=== PATIENT | male | born 1995 | race American Indian/Alaskan Native ===

== ENCOUNTER 2017-08-30 22:47 | Emergency (ER) | payer OTHER ==
[2017-08-30 23:18] LABS: Hematocrit 41.4 % (35.5-45.6); Hemoglobin 14.4 gm/dl (11.8-15.2); Mean Corpuscular HGB Conc 35 % (32-34); Mean Corpuscular Hemoglobin 33 pg (28-32); Mean Corpuscular Volume 94 fl (84-94); Red Blood Count 4.43 M/mm3 (3.65-5.03)
[2017-08-30 23:19] LABS: Basophils # (Auto) 0.1 K/mm3 (0.0-0.1); Basophils % (Auto) 1.3 % (0.0-1.8); Eosinophils % (Auto) 0.5 % (0.0-4.3); Lymphocytes # (Auto) 1.4 K/mm3 (1.2-5.4); Lymphocytes % (Auto) 14.6 % (13.4-35.0); Monocytes # (Auto) 1.2 K/mm3 (0.0-0.8); Monocytes % (Auto) 12.6 % (0.0-7.3); Platelet Count 228 K/mm3 (140-440)
[2017-08-30 23:27] LABS: BUN/Creatinine Ratio 21; Blood Urea Nitrogen 19 mg/dL (9-20); Calcium 9.5 mg/dL (8.4-10.2); Hemolysis Index 6
--- NOTE | 2017-08-31 00:27 | Emergency Department Report ---
ED Psych HPI - General Chief Complaint: Psych Stated Complaint: NON COMPLIANT WITH MEDS Time Seen by Provider: 08/31/17 00:08 Source: patient, EMS Mode of arrival: Ambulatory - History of Present Illness Initial Comments: Mr. hanna is a 22-year-old male with history of schizophrenia. Family called EMS services because he is noncompliant with psychiatric medications. He was [place] [address] He denies mental illness. He states that he is not taking any medications. He states that he is homeless. He has mild nasal congestion without any other complaints. Denies suicidal or homicidal ideation. -: Gradual, week(s) (2) History of same: Yes Context: not taking psychiatric Associated Symptoms: other (nasal congestion) - Related Data Home Medications Medication Instructions Recorded Confirmed Last Taken Unobtainable 08/31/17 08/31/17 Unknown Allergies Allergy/AdvReac Type Severity Reaction Status Date / Time No Known Allergies Allergy Verified 08/30/17 22:59 ED Review of Systems ROS: Stated complaint: NON COMPLIANT WITH MEDS Other details as noted in HPI Comment: All other systems reviewed and negative Constitutional: denies: fever, malaise Respiratory: denies: cough ED Past Medical Hx - Past Medical History Previous Medical History?: Yes Hx Psychiatric Treatment: Yes (schizo) - Surgical History Past Surgical History?: No - Social History Smoking Status: Never Smoker Substance Use Type: None - Medications Home Medications: Home Medications Medication Instructions Recorded Confirmed Last Taken Type Unobtainable 08/31/17 08/31/17 Unknown History ED Physical Exam - General Limitations: No Limitations General appearance: alert, in no apparent distress - Head Head exam: Present: atraumatic, normocephalic - Eye Eye exam: Present: normal appearance - ENT ENT exam: Present: mucous membranes moist - Neck Neck exam: Present: normal inspection - Respiratory Respiratory exam: Present: normal lung sounds bilaterally. Absent: respiratory distress, wheezes, rales, rhonchi - Cardiovascular Cardiovascular Exam: Present: regular rate, normal rhythm. Absent: systolic murmur, diastolic murmur, rubs, gallop - GI/Abdominal GI/Abdominal exam: Present: soft, normal bowel sounds. Absent: distended, tenderness, guarding, rebound - Rectal Rectal exam: Present: deferred - Extremities Exam Extremities exam: Present: normal inspection - Back Exam Back exam: Present: normal inspection - Neurological Exam Neurological exam: Present: alert, oriented X3 - Psychiatric Psychiatric exam: Present: normal affect, flat affect. Absent: depressed, agitated, anxious, manic, homicidal ideation, suicidal ideation - Skin Skin exam: Present: warm, dry, intact, normal color. Absent: rash ED Course Vital Signs 08/30/17 08/30/17 22:50 22:55 Temperature 99.3 F 99.3 F Pulse Rate 115 H 99 H Respiratory 18 18 Rate Blood Pressure 126/80 126/80 O2 Sat by Pulse 95 96 Oximetry ED Medical Decision Making - Lab Data Result diagrams: 08/30/17 23:02 08/30/17 23:02 - Medical Decision Making Mr. Hanna has a history of schizophrenia. According to family report to EMS he has been noncompliant with medications. He does present an imminent harm to himself with poor insight and judgment. I have signed 1013 form. Staff has instituted necessary precautions. He is medically clear for psychiatric care. Awaiting mental health assessment. Anticipate transfer to psychiatric inpatient facility. Laboratory Results - last 24 hr 08/30/17 08/30/17 08/30/17 23:02 23:02 23:02 WBC RBC Hgb Hct MCV MCH MCHC RDW Plt Count Lymph % (Auto) [place] % (Auto) Eos % (Auto) Baso % (Auto) Lymph # Hopkins # Eos # Baso # Add Manual Diff Seg Neutrophils % Seg Neutrophils # Sodium 139 Potassium 3.7 Chloride 97.2 L Carbon Dioxide 28 Anion Gap 18 BUN 19 Creatinine 0.9 Estimated GFR > 60 BUN/Creatinine Ratio 21 Glucose 105 H Calcium 9.5 Salicylates < 0.3 L Acetaminophen < 5.0 L Plasma/Serum Alcohol 08/30/17 08/30/17 23:02 23:02 WBC 9.5 RBC 4.43 Hgb 14.4 Hct 41.4 MCV 94 MCH 33 H MCHC 35 H RDW 12.0 L Plt Count 228 Lymph % (Auto) 14.6 Hopkins % (Auto) 12.6 H Eos % (Auto) 0.5 Baso % (Auto) 1.3 Lymph # 1.4 Hopkins # 1.2 H Eos # 0.0 Baso # 0.1 Add Manual Diff Complete Seg Neutrophils % 71.0 H Seg Neutrophils # 6.7 Sodium Potassium Chloride Carbon Dioxide Anion Gap BUN Creatinine Estimated GFR BUN/Creatinine Ratio Glucose Calcium Salicylates Acetaminophen Plasma/Serum Alcohol < 0.01 clear for psychiatric care. Awaiting transfer to psychiatric facility. Critical care attestation.: If time is entered above; I have spent that time in minutes in the direct care of this critically ill patient, excluding procedure time. ED Disposition Clinical Impression: Schizophrenia Disposition: [id number]/TX-[id number] ANOTHER TYPE HLTHCARE Is pt being admited?: No Does the pt Need Aspirin: No Condition: Stable
[2017-08-31 01:00] LABS: Bilirubin,Urine NEG (Negative); Blood,Urine MOD (Negative); Color,Urine Yellow (Yellow); Mucus,Urine 3+ /HPF
[2017-08-31 01:07] LABS: Amphetamine Screen,Urine PRESUMPTIVE NEGATIVE; Benzodiazepines Screen,Urine PRESUMPTIVE NEGATIVE; Cannabinoid Screen,Urine PRESUMPTIVE NEGATIVE; Cocaine Screen,Urine PRESUMPTIVE NEGATIVE; Methadone Screen,Urine PRESUMPTIVE NEGATIVE; Opiate Screen,Urine PRESUMPTIVE NEGATIVE
--- NOTE | 2017-08-31 13:33 | Consultation ---
History of Present Illness - Reason for Consult Consult date: 08/31/17 Reason for consult: Mental Health Evaluation Requesting physician: JAMMIE MOORE - Chief Complaint Chief complaint: "I don't know why I am here" - History of Present Psychiatric Illness 22 y.o. AA male presenting to the ER [place]. Today the patient is calm and cooperative, but disorganized during the assessment. He could not logically explain his action prior to his admission to the ER. He did state that his mother brought him to the ER because something was going on with him. He stated taking Risperdal in the past, but did not like the way the medication made him feel. He was looking around during the interview , possibly responding to some type of stimuli. He could not confirm or deny erratic sleep. He denies a poor appetite. He denies SI/HI's and AVH's. He denies recreational drug use and alcohol consumption (etoh). Medications and Allergies Allergies Allergy/AdvReac Type Severity Reaction Status Date / Time No Known Allergies Allergy Verified 08/30/17 22:59 Home Medications Medication Instructions Recorded Confirmed Last Taken Type Unobtainable 08/31/17 08/31/17 Unknown History Past psychiatric history - Past Medical History Past Medical History: No medical history Past Surgical History: No surgical history - past Psychiatric treatment and history psychiatric treatment history: He stated seeing a psychiatrist in the past. He denies a fam psy hx. - Social History Social history: other (Possibly homeless or resides with his mother) Mental Status Exam - Vital signs Last Vital Signs Temp 97.6 F 08/31/17 09:48 Pulse 87 08/31/17 09:48 Resp 16 08/31/17 09:53 BP 128/69 08/31/17 09:48 Pulse Ox 98 08/31/17 09:53 - Exam Narrative exam: MSE: Appearance: calm, cooperative Behavior: regular eye contact Speech: regular rate and tone Mood: "okay" Affect: congruent to mood Thought Process: disorganized Thought Content: denies SI/HI's and AVH's Motor Activity: lying in bed Cognition: A/O x 3 Insight: variable Judgment: variable Results Result Diagrams: 08/30/17 23:02 08/30/17 23:02 Abnormal lab results 08/30/17 08/30/17 08/30/17 Range/Units 23:02 23:02 23:02 MCH (28-32) pg MCHC (32-34) % RDW (13.2-15.2) % [place] % (Auto) (0.0-7.3) % [place] # (0.0-0.8) K/mm3 Seg Neutrophils % (40.0-70.0) % Chloride 97.2 L (98-107) mmol/L Glucose 105 H (75-100) mg/dL Ur Specific [place] (1.003-1.030) Salicylates < 0.3 L (2.8-20.0) mg/dL Acetaminophen < 5.0 L (10.0-30.0) ug/mL 08/30/17 08/31/17 Range/Units 23:02 00:44 MCH 33 H (28-32) pg MCHC 35 H (32-34) % RDW 12.0 L (13.2-15.2) % [place] % (Auto) 12.6 H (0.0-7.3) % [place] # 1.2 H (0.0-0.8) K/mm3 Seg Neutrophils % 71.0 H (40.0-70.0) % Chloride (98-107) mmol/L Glucose (75-100) mg/dL Ur Specific [place] 1.031 H (1.003-1.030) Salicylates (2.8-20.0) mg/dL Acetaminophen (10.0-30.0) ug/mL All other labs normal. Assessment and Plan Assessment and plan: Impression: Unspecified Psychosis. Today the patient is calm and cooperative, but disorganized during the assessment. UDS negative. DDx: R/O Bipolar DO, R/O Schizophrenia Recommendation/Plan: Continue 1013 and gather collateral information to help determine proper treatment and dispo.
--- NOTE | 2017-09-01 13:42 | Progress Note ---
Subjective - Reason for Consult Consult date: 09/01/17 Reason for consult: Psychiatry Follow-up - Chief Complaint Chief complaint: "Hello there" 22 y.o. AA male presenting [place] the ER [place]. Today the patient is calm and cooperative, but still disorganized during the assessment. He could not explain his actions prior to his admission. His answers to questions were not logical. Per collateral information from his mother Paulina Clark at [phone], she stated that her son's behavior has been bizarre. She stated that he was missing for 2 days prior to his arrival to the ER. She stated that her son's mood has changed "drastically." The patient stated that he didn't want to sleep prior to him wandering. He denies SI/HI's and AVH's. Mental Status Exam - Vital signs Last Vital Signs Temp 98.1 F 09/01/17 10:00 Pulse 85 09/01/17 10:00 Resp 14 09/01/17 10:00 BP 118/65 09/01/17 10:00 Pulse Ox 98 09/01/17 10:00 - Exam Narrative exam: MSE: Appearance: calm, cooperative, malodorous Behavior: regular eye contact Speech: regular rate and tone Mood: labile Affect: congruent to mood Thought Process: disorganized Thought Content: denies SI/HI's and AVH's Motor Activity: lying in bed Cognition: A/O x 3 Insight: poor Judgment: variable Assessment and Plan Impression: Unspecified Psychosis. Today the patient is calm and cooperative, but still disorganized during the assessment. UDS negative. DDx: Bipolar DO with psychosis, R/O Schizophrenia Recommendation/Plan: Continue 1013 with placement to inpatient psy services. Start Abilify 5 mg PO daily for mood/psychosis and Depakote 1000 mg PO as a loading dose and modify the dose to 500 mg PO BID. Discussed possible metabolic side effects of Abilify with the patient. Prior to patient being transferred, contact his mother Paulina Clark at [phone]. The patient's mother would like for her son to transferred to [facility] if possible.
[2017-09-01 15:03] LABS: Alanine Aminotransferase 20 units/L (7-56); Lipase 21 units/L (13-60)
[2017-09-01] MEDS: ABILIFY PO SCH (15:45)
[2017-09-02] MEDS: ABILIFY PO SCH (09:00)
--- NOTE | 2017-09-02 16:12 | Progress Note ---
Subjective - Reason for Consult Reason for consult: follow up - Chief Complaint Chief complaint: Subjectively: Patient appears somewhat somnolent and withdrawn. Patient minimally cooperative with interview. Mostly selectively mute. Mental status examination: In hospital gown, limited cooperation, limited eye contact, malodorous and disheveled, guarded, anxious, constricted, slow soft mostly mute, impoverished concrete, somatically focused, likely responding to internal stimuli, insight judgment limited ADLs limited Plan: Refer for inpatient psychiatric care Continue Depakote at current dose and monitor labs when appropriate Mental Status Exam - Vital signs Last Vital Signs Temp 97.8 F 09/02/17 07:50 Pulse 66 09/02/17 07:50 Resp 14 09/02/17 07:50 BP 101/64 09/02/17 07:50 Pulse Ox 98 09/02/17 07:50
[2017-09-03] MEDS: ABILIFY PO SCH (10:11)
--- NOTE | 2017-09-03 10:44 | Progress Note ---
Subjective - Reason for Consult Consult date: 09/03/17 Reason for consult: Psychiatry Folow-up - Chief Complaint Chief complaint: "Hello" 22 y.o. AA male presenting [place] the [place]. Today the patient is calm and cooperative, but still disorganized during the assessment. He continue to be withdrawn during the interview. He denies SI/ HI's and AVH's. He denies any side effect of his medications. Mental Status Exam - Vital signs Last Vital Signs Temp 97.8 F 09/02/17 07:50 Pulse 66 09/02/17 07:50 Resp 18 09/03/17 01:06 BP 101/64 09/02/17 07:50 Pulse Ox 100 09/03/17 01:06 - Exam Narrative exam: MSE: Appearance: calm, cooperative, malodorous Behavior: regular eye contact Speech: regular rate and tone Mood: labile Affect: congruent to mood Thought Process: disorganized Thought Content: denies SI/HI's and AVH's Motor Activity: lying in bed Cognition: A/O x 3 Insight: poor Judgment: variable Assessment and Plan Impression: Unspecified Psychosis. Today the patient is calm and cooperative, but still disorganized during the assessment. UDS negative. DDx: Bipolar DO with psychosis, R/O Schizophrenia Recommendation/Plan: Continue 1013 with placement to [facility] pending transport time. Continue Abilify 5 mg PO daily for mood/psychosis and Depakote 1000 mg PO as a loading dose and modify the dose to 500 mg PO BID. Discussed possible metabolic side effects of Abilify with the patient. Prior to patient being transferred, contact his mother Paulina Clark at [phone]. The patient's mother would like for her son to transferred to [facility] if possible.
[2017-09-04] MEDS: ABILIFY PO SCH (11:46)
--- NOTE | 2017-09-04 13:06 | Progress Note ---
Subjective - Reason for Consult Consult date: 09/04/17 Reason for consult: Psychiatry Follow-up - Chief Complaint Chief complaint: "Will I be leaving today" 22 y.o. AA male presenting [place] the [place]. Today the patient is calm and cooperative during the assessment. he was informed that he will be transferred today to [facility]. He continue to be withdrawn. He denies SI/HI's and AVH's. He denies any side effect of his medications. Mental Status Exam - Vital signs Last Vital Signs Temp 97.6 F 09/03/17 19:55 Pulse 67 09/03/17 19:55 Resp 18 09/04/17 07:56 BP 110/72 09/03/17 19:55 Pulse Ox 100 09/03/17 20:29 - Exam Narrative exam: MSE: Appearance: calm, cooperative Behavior: regular eye contact Speech: regular rate and tone Mood: labile Affect: congruent to mood Thought Process: disorganized Thought Content: denies SI/HI's and AVH's Motor Activity: lying in bed Cognition: A/O x 3 Insight: poor Judgment: variable Assessment and Plan Impression: Unspecified Psychosis. Today the patient is calm and cooperative during the assessment. UDS negative. DDx: Bipolar DO with psychosis, R/O Schizophrenia Recommendation/Plan: Continue 1013 with placement to [facility] today. Continue Abilify 5 mg PO daily for mood/psychosis and Depakote 1000 mg PO as a loading dose and modify the dose to 500 mg PO BID. Discussed possible metabolic side effects of Abilify with the patient. Prior to patient being transferred, contact his mother Paulina Clark at [phone]. The patient's mother would like for her son to transferred to [facility] if possible.
[2017-09-04 14:01] VITALS: BP 108/72
== END 2017-09-04 13:25 ==
LOC: EEVIPCON 22:47 → ED 22:47
DX: F20.9 Schizophrenia, unspecified (principal); R09.81 Nasal congestion; Z79.899 Other long term (current) drug therapy
CPT/HCPCS: 36415; 80048; 80307; 81001; 82150; 83690; 84075; 84450; 84460; 85025; 99285; G0480; 80320